=== PATIENT | male | born 1960 | race Caucasian/White ===

== ENCOUNTER 2018-11-24 08:29 | Day surgery (SDC) | payer OTHER ==
[2018-11-20 13:56] VITALS: BMI 34.4
[2018-11-24] MEDS ORDERED: PROPOFOL 20 ML ONE ×2 (09:34)
[2018-11-24] MEDS ORDERED: MIDAZOLAM HCL 2 MG/2 ML SINGLE DOSE VIAL ONE (09:34)
[2018-11-24 10:27] VITALS: TEMP 97.5
[2018-11-24 11:12] VITALS: BP 132/71; PULSE 81
--- NOTE | 2018-11-26 16:19 | PATH ---
Surgical Pathology Report Patient Name: JEREMIAH MCNEILL [facility]. Rec. #: [id number] /Age/Gender: 1960 (Age: 58) / M Account: [id number] Location: [facility] Taken: 11/24/2018 Received: 11/24/2018 Reported: 11/26/2018 Physicians: Deepak Loco M.D. Specimen(s) Received A: SECOND PORTION OF DUODENUM B: ANTRUM C: DISTAL ESOPHAGUS Clinical History GERD, screening Postoperative diagnosis: Small hiatal hernia Final Diagnosis A. DUODENUM, SECOND PORTION, BIOPSY: DUODENAL MUCOSA WITH MILD ACUTE AND CHRONIC DUODENITIS. B. GASTRIC ANTRUM, BIOPSY: GASTRIC ANTRAL MUCOSA WITH MILD CHRONIC GASTRITIS. IMMUNOHISTOCHEMICAL STAIN FOR H. PYLORI IS NEGATIVE. C. GE JUNCTION, BIOPSY: SQUAMOCOLUMNAR MUCOSA WITH MILD CHRONIC INFLAMMATION AND CHANGES OF MODERATE REFLUX ESOPHAGITIS. NO INTESTINAL METAPLASIA OR DYSPLASIA IDENTIFIED. Electronically Signed Selina Puri M.D. Gross Description A. Received in formalin, labeled "biopsy second portion of duodenum" are 2 cervantes, irregular portions of soft tissue averaging 0.4 cm. in greatest dimension. The specimens are submitted in toto in one cassette. B. Received in formalin, labeled "biopsy gastric antrum" are 2 cervantes, irregular portions of soft tissue averaging 0.4 cm. in greatest dimension. The specimens are submitted in toto in one cassette. C. Received in formalin, labeled "biopsy distal esophagus" are 3 cervantes, irregular portions of soft tissue ranging from 0.2-0.4 cm. in greatest dimension. The specimens are submitted in toto in one cassette. 11/25/2018 saudi11/25/2018
== END 2018-11-24 11:15 | disposition home or self-care (01) ==
LOC: FASU-ENDO 08:29
PROVIDERS: ATTEND Internal Medicine Gastroenterology
PROC: 0DB98ZX Excision of Duodenum, Via Natural or Artificial Opening Endoscopic, Diagnostic (ICD-10-PCS; 2018-11-24)
PROC: 0DB68ZX Excision of Stomach, Via Natural or Artificial Opening Endoscopic, Diagnostic (ICD-10-PCS; 2018-11-24)
PROC: 0DB38ZX Excision of Lower Esophagus, Via Natural or Artificial Opening Endoscopic, Diagnostic (ICD-10-PCS; 2018-11-24)
PROC: 0DJD8ZZ Inspection of Lower Intestinal Tract, Via Natural or Artificial Opening Endoscopic (ICD-10-PCS; principal; 2018-11-24 09:48)
DX: Z12.11 Encounter for screening for malignant neoplasm of colon (principal); K29.50 Unspecified chronic gastritis without bleeding; K29.80 Duodenitis without bleeding; K21.0 Gastro-esophageal reflux disease with esophagitis; K44.9 Diaphragmatic hernia without obstruction or gangrene
CPT/HCPCS: 82962; 88305-TC; 88342-TC